=== PATIENT | female | born 1985 | race African-American/Black ===

== ENCOUNTER 2017-09-06 11:05 | Day surgery (SDC) | payer OTHER ==
[~2017-09-06] VITALS: Ht 154.9 cm; Wt 71.7 kg
[2017-09-06 11:56] VITALS: BMI 30.2
[2017-09-06 11:58] VITALS: Ht 154.9 cm; Wt 71.7 kg
[2017-09-06 15:37] VITALS: BP 147/68; PULSE 61; RESP 15
--- NOTE | 2017-09-06 16:05 | OPPN ---
Date/Time of Note Date/Time of Note DATE: 09/06/17 TIME: 16:01 Proc Note GI Procedure Date 09/06/17 Indication: other (Diarrhea/hematochezia) Pre-procedure Diagnosis Diarrhea/hematochezia Post-procedure Diagnosis Impression: Questionable proctitis. Biopsies obtained Otherwise normal colonic mucosa. Random biopsies obtained right and left colon. Rule out microscopic, lymphocytic or collagenous colitis. Normal terminal ileum. Random biopsies obtained Moderate-sized internal hemorrhoids. Otherwise normal colonoscopy to cecum. Plan: Follow up as scheduled] High fiber diet Annual hemoccult stool testing [Review pathology] [Screening colonoscopy age 50 Procedure Performed: Colonoscopy (Plus biopsies, enteroscopy plus biopsies) Surgeon ILIA SINGLETON MD See signature line Shrink Pit Supervisor none Anesthesia Type: moderate sedation (Versed 4 mg/fentanyl 100 mcg ) Tourniquet Time none EBL none Transfusion required none Biopsy 1: Terminal ileum Biopsy 2: Right colon Biopsy 3: Left colon Additional Biopsy: Rectum Grafts/Implants none Tubes/Drains none Complication(s) none Disposition: home Procedure Description After informed consent, with the patient/relatives understanding the procedure, its indications and potential risks and complications, including but not limited to: Allergic reaction, bleeding, perforation, infection, and after all pertinent questions were answered to the patient's satisfaction, the patient/ relatives signed the witnessed informed consent. Following this, premedication was administered slowly IV push under careful cardiovascular and respiratory monitoring with pulse [employer], automatic blood pressure, and bus driver/monitor. Once the sedative effect was achieved, the patient was placed in the left lateral decubitus position, digital rectal examination was performed. The colonoscope was then introduced and advanced under visual control throughout all segments of the colon including: the rectum, sigmoid, descending colon, splenic flexure, transverse colon, hepatic flexure, ascending colon and finally reaching the cecum which was clearly identified by transillumination, finger indentation and the ileocecal valve. Terminal ileum was entered and examined. Careful examination of the mucosa of the lower gastrointestinal tract both on insertion as well as withdrawal of the instrument disclosed the following findings: PREPARATION QUALITY: [Adequate], RECTAL EXAM: The anorectal area was visualized examined and digital rectal examination performed with the following findings: No evidence of perirectal disease, no masses. COLONIC MUCOSA: The mucosa of all segments of the colon was carefully examined and showed the following findings: There is erythema, edema of the rectrum. Biopsied to rule out proctitis. Otherwise the examined mucosa appears within normal limits. There is no evidence of inflammatory changes, diverticular formation, polyps or neoplasms, vascular malformation, or any other abnormality. Random biopsies were obtained of the right and left side of the colon. The terminal ileum appears unremarkable. Random biopsies were obtained. Moderate-sized internal hemorrhoids are present. The instrument was then withdrawn, the patient tolerated the procedure well and was transferred out of the Endoscopy Suite awake and in good condition to continue recovery under observation. Copies To: CC: ILIA SINGLETON MD, MORDO MD Sep 06, 2017 16:05
[2017-09-06] MEDS ORDERED: MIDAZOLAM 1 MG/ML 2 ML INJ ONE ×2 (16:22)
[2017-09-06] MEDS ORDERED: FENTAnyl 50 MCG/ML VIAL ONE (16:22)
[2017-09-06 16:28] VITALS: BP 104/70; RESP 20
== END 2017-09-06 20:18 | disposition home or self-care (01) ==
LOC: GIL 11:05
PROVIDERS: ATTEND Internal Medicine Gastroenterology
DX: K92.1 Melena (principal); K64.8 Other hemorrhoids
CPT/HCPCS: 45380; 84703; 88305; J2250; J3010; Z7610